=== PATIENT | female | born 2000 | race Asian ===

== ENCOUNTER 2021-07-01 21:45 | Emergency (ER) | payer MEDICAID ==
[~2021-07-01] VITALS: Ht 147.3 cm; Wt 38.6 kg
[~2021-07-01 21:45] MED LIST: PRED20TA PO; TRIA15CR61 TP
[2021-07-01 23:12] LABS: URINE HCG NEGATIVE (NEG)
[2021-07-01 23:38] LABS: CLARITY,URINE CLOUDY (Clear); COLOR,URINE YELLOW (Yellow); GLUCOSE, URINE NEGATIVE (Neg); KETONES,URINE NEGATIVE (Neg); LEUKOCYTE ESTERASE ,URINE MODERATE (Neg); NITRITES, URINE NEGATIVE (Neg); OCCULT BLOOD,URINE LARGE (Neg); PROTEIN,URINE TRACE mg/dl (Neg); UROBILINOGEN,URINE 0.2 E.U/dL (0.2-1.0)
[2021-07-01 23:41] LABS: UA COLLECTION TYPE CLN CATCH MIDSTREAM
[2021-07-01 23:44] LABS: WBC,URINE 30-50 /HPF (0-4)
[2021-07-01 23:45] LABS: BACTERIA,URINE FEW /HPF (Neg); MUCUS STRANDS FEW /LPF (Neg); SQUAMOUS EPITHELIAL CELL,UR FEW /LPF (FEW); WBC CLUMPS,URINE FEW /HPF (NEGATIVE)
[2021-07-01] MEDS ORDERED: NITR100C6 PO (23:48)
[2021-07-01] MEDS ORDERED: nitrofuran/nitrofuran macrocrysal 100 MG capsule PO ONE (23:50)
[2021-07-02 00:09] VITALS: BP 123/74
== END 2021-07-02 00:11 | disposition home or self-care (01) ==
LOC: ER 21:45
DX: N39.0 Urinary tract infection, site not specified (principal); Z72.89 Other problems related to lifestyle; Z79.899 Other long term (current) drug therapy
CPT/HCPCS: 81001; 81025; 87077; 87088; 87186; 99283